=== PATIENT | female | born 1960 | race Caucasian/White ===

== ENCOUNTER 2018-06-09 13:58 | Emergency (ER) | payer BC ==
[~2018-06-09] VITALS: Ht 165.1 cm; Wt 102.1 kg
[2018-06-09 14:49] LABS: BASO % 0.2 % (0.0-1.0); EOS # 0.1 10*3/uL (0.0-0.4); EOS % 0.6 % (1.0-4.0); HEMOGLOBIN 13.8 g/dl (12.0-16.0); LYMPH # 0.8 10*3/uL (1.3-4.4); LYMPH % 7.3 % (27.0-41.0); MEAN CELL VOLUME 89.9 fl (81.0-99.0); MEAN CORPUSCULAR HGB 29.6 pg (27.0-31.0); MEAN CORPUSCULAR HGB CONC 32.9 g/dl (33.0-37.0); MEAN PLATELET VOLUME 10.1 fl (9.6-12.3); MONO # 0.6 10*3/uL (0.1-1.0); MONO % 5.6 % (3.0-9.0); NEUT # 9.8 10*3/uL (2.3-7.9); NEUT % 85.9 % (47.0-73.0); PLATELET COUNT AUTOMATED 188 10*3/uL (130-400); RED BLOOD COUNT 4.67 10*6/uL (4.10-5.10); RED CELL DISTRI WIDTH 12.5 % (0-14.5); WHITE BLOOD COUNT 11.4 10*3/uL (4.8-10.8)
[2018-06-09 14:58] LABS: BILIRUBIN 1+ (NEGATIVE); BLOOD 2+ (NEGATIVE); CLARITY SL CLOUDY (CLEAR); COLOR YELLOW (YELLOW); GLUCOSE NEGATIVE (NEGATIVE); KETONE 3+ (NEGATIVE); LEUKO ESTERASE NEGATIVE (NEGATIVE); NITRITE NEGATIVE (NEGATIVE); PH 6.5 (5.0-9.0); SPECIFIC GRAVITY 1.025 (1.005-1.030)
[2018-06-09 15:04] LABS: ALBUMIN 3.1 gm/dl (3.1-4.5); ALKALINE PHOSPHATASE 70 U/L (45-117); BUN 9 mg/dl (7-24); CHLORIDE 109 mmol/L (98-107); CREATININE 0.67 mg/dL (0.55-1.02); POTASSIUM 3.5 mmol/L (3.5-5.1); SGOT/AST 6 IU/L (3-35); SGPT/ALT 11 U/L (12-78); SODIUM 141 mmol/L (136-145); TOTAL PROTEIN 7.3 gm/dL (6.4-8.2)
[2018-06-09 15:05] LABS: BACTERIA 1+; EPITHELIAL CELLS TNTC; MUCOUS 1+; RBC 21-30 rbc/hpf (0-2)
[2018-06-09] MEDS ORDERED: PROAIR HFA8.5 GM INH (15:42)
[2018-06-09] MEDS ORDERED: ZITHROMAX250 MG PO (15:42)
[2018-06-09] MEDS ORDERED: PREDNISONE10 MG PO (15:42)
[2018-06-09] MEDS ORDERED: TESSALON PERLE100 M1 PO (15:55)
[2018-06-09] MEDS ORDERED: HYCODAN/HYDROMET5 ML PO (15:55)
== END 2018-06-09 16:01 | disposition home or self-care (01) ==
LOC: ED 13:58
PROVIDERS: Physician Assistant
DX: J20.9 Acute bronchitis, unspecified (principal); R51 Headache; E86.0 Dehydration; F17.200 Nicotine dependence, unspecified, uncomplicated